=== PATIENT | male | born 1945 | race Caucasian/White ===

== ENCOUNTER 2017-02-18 11:14 | Observation (INO) | payer OTHER ==
[2017-02-15 20:19] LABS: BD FL LYMPH (NOT ORD) 1 %; BF BASO (NOT OF) 0 %; BF LARGE MONONUCLEAR 10 %; BF TOTAL CELL CT (NOT ORD 36910 /MM3; BODY FLUID EOS (NOT ORD) 0 %; BODY FLUID SEG (NOT ORD) 89 %
[2017-02-15 20:20] LABS: BD FL SOURCE (NOT ORD) RT KNEE; BODY FLUID RBC (NOT ORD) 30000 /MM3
--- NOTE | ~2017-02-18 | DS ---
Discharge Summary [facility] [address] [place]. [address] NAME: BERNARDA SHIN : 49 STATUS : DIS Nixon PAT#: [id number] AGE: 71 ADM/REG DATE : 02/18/17 MR#: [id number] REPORT SERV DATE: 02/25/17 DICTATED BY: DEANGELO MORA DATE: 02/25/17 REPORT STATUS : Draft TRANSCRIBED BY: ZECHARIAH DATE: 02/25/17 Data Collection from hospitalization DISCHARGE DIAGNOSES: 1. Right bimalleolar ankle fracture. 2. Hypertension. 3. Diabetes. 4. Osteoarthritis. 5. History of myocardial infarction. 6. Peripheral neuropathy. CONSULTATIONS: None. PROCEDURES PERFORMED: Right distal fibula and lateral malleolus ankle fracture open reduction and internal fixation, right avulsion fracture from the medial malleolus excision with primary deltoid repair on 02/18/2017. MEDICATIONS: Aspirin 81 mg daily; Lipitor 40 mg at bedtime; Coreg 3.125 mg twice a day; Zyrtec 10 mg daily; Plavix 75 mg daily; Taztia XT 180 mg daily; Lasix 40 mg every morning; Neurontin 300 mg three times a day; Glucotrol 10 mg every morning and 5 mg every evening; Matthews 7.5/325 one tablet twice a day as needed; Novolin N 25 units subcutaneously twice a day; Novolin R 5 units subcutaneously twice a day; Cozaar 12.5 mg every morning; Mag-Ox 400 mg every morning; Zaroxolyn 2.5 mg daily as needed; Promega 1000 mg every morning; Percocet 5/325 one to two tablets every four hours as needed; Protonix 40 mg every morning; K-Dur 40 mEq three times a day; Phenergan 25 mg every six hours as needed; Zoloft 150 mg every evening; Refresh solution as instructed; propafenone 225 mg three times a day; Coumadin 7.5 mg on Tuesday, Tuesday, Tuesday, and Tuesday and 3.75 mg on Tuesday, , and Tuesday. CONDITION AT DISCHARGE: Stable. DISPOSITION: The patient was discharged home to be followed by home health care on a regular diet with activities as instructed. He would follow up with me as scheduled. HOSPITAL COURSE: This is a 71-year-old man who has a right ankle fracture that occurred on 02/13/2017. He said that he tripped over an object and fell twisting his ankle. X-rays had shown right bimalleolar ankle fracture. Treatment options were discussed and it was elected to proceed with surgical intervention. He was admitted to the hospital at this time for further evaluation and treatment. Upon admission, he was taken to the operating room where he underwent the above-mentioned procedure. He tolerated this well, and there were no complications. On postop day #1, he was seen by Emigdio Loco. The patient has a history of coronary artery disease, hypertension, and atrial fibrillation. He tolerated his surgical procedure well. His pain was well controlled. Potassium supplementation was given. INR level was 1.5. We encouraged him to mobilize with Physical Therapy. He was evaluated by Physical Therapy. Over the next couple of days, discharge planning was performed. He continued to do well. On 02/21/2017, the patient was doing well. He was able to move and transfer via a wheelchair. He was unable to use a walker. He was to remain nonweightbearing on the right Discharge Summary [address] [address] NAME: BERNARDA SHNI : 49 STATUS : DIS Nixon PAT#: [id number] AGE: 71 ADM/REG DATE : 02/18/17 MR#: [id number] REPORT SERV DATE: 02/25/17 DICTATED BY: DEANGELO MORA DATE: 02/25/17 REPORT STATUS : Draft TRANSCRIBED BY: MODL DATE: 02/25/17 foot. Discharge instructions were given. Due to his improved and stable condition, he was discharged home to be followed by home health care with the above-stated instructions. Information collected by: Rosio Krishnamurthy I submit the above information as my discharge summary. BRANDON/ZECHARIAH Flor Mora D.P.M. / [id number] CC: Sara Ozuna M.D.
--- NOTE | ~2017-02-18 | OP ---
Record Of Operation [facility] [address] [place]. [address] NAME: BERNARDA SHIN : 49 STATUS : ADM Nixon PAT#: [id number] AGE: 71 ADM/REG DATE : 02/18/17 MR#: [id number] REPORT SERV DATE: 02/18/17 DICTATED BY: DEANGELO MONROE DATE: 02/18/17 REPORT STATUS : Draft TRANSCRIBED BY: MODHumberto DATE: 02/18/17 DATE OF PROCEDURE: 02/18/2017 PREOPERATIVE DIAGNOSIS: Right bimalleolar ankle fracture. POSTOPERATIVE DIAGNOSIS: Right bimalleolar ankle fracture. PROCEDURE: 1. Right distal fibula and lateral malleolus ankle fracture open reduction and internal fixation. 2. Right avulsion fracture from the medial malleolus excision with primary deltoid repair. ANESTHESIA: General and local anesthetic. ESTIMATED BLOOD LOSS: Minimal. COMPLICATIONS: None. INJECTABLES: Approximately 40 mL of a 1:1 mixer of Xylocaine and 0.5% Marcaine plain. MATERIALS: Include one-third tubular neutralization plate with 3.5, 4-0 screw fixation, 2-0 Vicryl, 3.0 suture anchor with 0 FiberWire, 4-0 nylon skin jacquelyn. PROCEDURE IN DETAIL: Under mild sedation, the patient was brought to the operating room and placed on the operating table in supine position. Following general anesthesia, local anesthesia was obtained about the patient's right foot and ankle. Right foot, ankle, and lower leg were scrubbed, prepped, and draped in usual aseptic manner. Attention was directed to the procedure. Procedure #1 is right distal fibular ankle fracture ORIF. Attention directed to the lateral aspect of the patient's right distal fibula and lateral malleolus. The incision was deepened to subcutaneous tissue with care being taken to identify and retract all vital neurovascular structures. All bleeders were cauterized and ligated as necessary. At this time, a linear periosteal incision was made overlying the distal fibula and lateral malleolus. The oblique fracture was visualized and interfrag hematoma was resected and irrigated. At this time, reduction ensued with fracture reduction clamps. Excellent reduction was noted. Fracture reduction clamp was held in place as an interfrag 3.5 cortical screw was placed from posterior to anterior across the fracture site utilizing standard AO principles and techniques. At this time, one-third tubular neutralization plate was contoured to the lateral malleolus and distal fibula. 3.5 screws were placed superior to the fracture and inferior to the fracture. 4-0 cancellous screw and one single locking 3.5 screw were placed to the most inferior site to reduce screw head prominence. Care was being taken to avoid intra-articular excursion under fluoroscopy guidance. Excellent reduction was noted. Attention now directed to the next procedure. The next procedure is right medial malleolar avulsion fracture excision with primary deltoid Record Of Operation [facility] [address] [facility] [place]. [address] NAME: BERNARDA SHIN : 49 STATUS : ADM Nixon PAT#: [id number] AGE: 71 ADM/REG DATE : 02/18/17 MR#: [id number] REPORT SERV DATE: 02/18/17 DICTATED BY: DEANGELO MONROE DATE: 02/18/17 REPORT STATUS : Draft TRANSCRIBED BY: ZECHARIAH DATE: 02/18/17 repair. Attention now was directed to the medial aspect of the patient's right ankle where a fracture blister was noted overlying the distal tibia. At this time, a curvilinear incision was made underlying the inferior aspect of the medial malleolus and inferior to the fracture blister. Blunt dissection was continued down to the level of the subcutaneous tissue. Large hematoma formation was noted at the level of the deltoid. Again, blunt dissection was continued through the retinacular tissues with deep blunt retraction exposing the deltoid ligament. Complete rupture of the superficial and deep deltoid portions was present. The avulsion fracture was easily identified and was resected. This was a small avulsion fracture. Copious irrigation ensued. Due to the severe rupture nature of the deltoid, superficial and deep components, a 3.0 suture anchor from [employer] was placed within the inferior aspect of the medial malleolus. 0 FiberWire was then utilized to reapproximate, coapt, and secure the deltoid, superficial and deep components of the ligament with the foot in a slight inverted in neutral position. Excellent reapproximation was noted, oversewing with 2-0 Vicryl ensued. The deep fascia was reapproximated and coapted using 2-0 Vicryl. Subcutaneous tissue was reapproximated and coapted using 2-0 Vicryl. Skin was reapproximated and coapted in interrupted suture technique with 4-0 nylon. The fracture blister was sterilely drained and Adaptic was placed and the blister was not de roofed. A well-padded sterile dressing was placed about the patient's right foot, ankle, and lower leg. The patient was placed in a neutral position. The patient tolerated the procedure and anesthesia well and was transferred to recovery room with vital signs stable and vascular status intact to all toes. Following a period of postoperative monitoring, the patient will be transferred to the floor for postop pain control and hopeful placement after evaluation with case management. The patient has significant comorbidities and hopeful placement will be an option. The patient will resume all blood thinners as well. Strict nonweightbearing at all times. BENNIE/ZECHARIAH Flor Monroe D.P.M. / [id number] CC: Flor Monroe D.P.M.
[~2017-02-18 11:14] MED LIST: ASAB PO; CARDIZEM LA180 MG PO; COREG3 PO; COUMADIN7.5 MG PO; COZ25 PO; GLUCOTRO10 PO; GLUCXL10 PO; INSNOVR SC; IPRA17AE INH; KDUR20 PO; L40 PO; LEVEMIR SC; LIPITOR40 PO; LUMIGAN2.5 ML OPH; MAGOX4 PO; MICRO-K10 MEQ PO; NEUR600 PO; NORCO1 TA2 PO; PLAVIX PO; PROMEGA PO; PROTONIXIV IV; PULRESP1 INH; RYTHMOL SR225 MG PO; SALMON OIL; VENTOLIN HFA INH; ZAROX2.5B PO; ZOL100 PO; ZYRTEC ALLGY10 MG PO
[2017-02-18 11:52] LABS: HEMATOCRIT 36.5 % (40.0-51.0); HEMOGLOBIN 12.8 g/dL (13.6-17.8)
[2017-02-18 12:02] LABS: CALCIUM, SERUM 8.9 MG/DL (8.5-10.4); CHLORIDE, SERUM 104 MMOL/L (96-112); CO2 (CARBON DIOXIDE) 32 MMOL/L (24-34); CREATININE 1.24 MG/DL (0.70-1.30); GFR AFRICAN AMERICAN 68 ML/MIN (>=60); GFR NON AFRICAN AMERICAN 59 ML/MIN (>=60); GLUCOSE, SERUM 111 MG/DL (60-99); INTERNATIONAL NORMAL RATI 1.5 UNITS (-); PROTIME (NOT ORD) 18.3 SEC (12.0-14.5); SODIUM, SERUM 142 MMOL/L (135-148)
[2017-02-18 12:10] LABS: BUN (BLOOD UREA NITROGEN) 35 MG/DL (6-23); POTASSIUM, SERUM 2.7 MMOL/L (3.5-5.3)
[2017-02-18] MEDS ORDERED: COREG3 PO (18:53)
[2017-02-18] MEDS ORDERED: LIPITOR40 PO (18:53)
[2017-02-18] MEDS ORDERED: ASAB PO (18:53)
[2017-02-18] MEDS ORDERED: PLAVIX PO (18:53)
[2017-02-18] MEDS ORDERED: L40 PO (18:53)
[2017-02-18] MEDS ORDERED: GLUCOTROL5 PO (18:54)
[2017-02-18] MEDS ORDERED: NEUR300 PO (18:54)
[2017-02-18] MEDS ORDERED: GLUCOTRO10 PO (18:54)
[2017-02-18] MEDS ORDERED: COUMADIN7.5 MG PO ×2 (18:55→19:04)
[2017-02-18] MEDS ORDERED: REFRES1 (18:56)
[2017-02-18] MEDS ORDERED: TAZTIA XT PO (18:56)
[2017-02-18] MEDS ORDERED: ZAROX2.5B PO (18:56)
[2017-02-18] MEDS ORDERED: ZYRTEC ALLGY10 MG PO (18:56)
[2017-02-18] MEDS ORDERED: COZ25 PO (18:57)
[2017-02-18] MEDS ORDERED: PROMEGA PO (18:57)
[2017-02-18] MEDS ORDERED: MAGOX4 PO (18:57)
[2017-02-18] MEDS ORDERED: NORCO1 TA2 PO (18:57)
[2017-02-18] MEDS ORDERED: KDUR20 PO (18:58)
[2017-02-18] MEDS ORDERED: PROPAFENONE PO (18:59)
[2017-02-18] MEDS ORDERED: INSNOVR SC (18:59)
[2017-02-18] MEDS ORDERED: [UNRECOGNIZED DRUG - OTHER] PO (18:59)
[2017-02-18] MEDS ORDERED: INSNOVN SC (18:59)
[2017-02-18] MEDS ORDERED: ZOL100 PO (19:00)
[2017-02-18] MEDS ORDERED: PROTONIX PO (19:05)
[2017-02-19 06:53] LABS: INTERNATIONAL NORMAL RATI 1.5 UNITS (-); PROTIME (NOT ORD) 17.5 SEC (12.0-14.5)
[2017-02-20 04:59] LABS: BUN (BLOOD UREA NITROGEN) 27 MG/DL (6-23); CHLORIDE, SERUM 103 MMOL/L (96-112); CO2 (CARBON DIOXIDE) 33 MMOL/L (24-34); CREATININE 1.31 MG/DL (0.70-1.30); GFR AFRICAN AMERICAN 64 ML/MIN (>=60); GFR NON AFRICAN AMERICAN 55 ML/MIN (>=60); GLUCOSE, SERUM 187 MG/DL (60-99); SODIUM, SERUM 142 MMOL/L (135-148)
[2017-02-20 05:01] LABS: INTERNATIONAL NORMAL RATI 1.4 UNITS (-); PROTIME (NOT ORD) 16.7 SEC (12.0-14.5)
[2017-02-20] MEDS ORDERED: PR25 PO (09:20)
[2017-02-20] MEDS ORDERED: PCET PO (09:20)
[2017-02-21 05:33] LABS: INTERNATIONAL NORMAL RATI 1.5 UNITS (-); PROTIME (NOT ORD) 17.8 SEC (12.0-14.5)
== END 2017-02-21 13:39 | disposition home or self-care (01) ==
LOC: SDC 11:14 → SDC/OF 15:46 → 4SO 17:58
PROVIDERS: Nurse Practitioner Gerontology; Orthopaedic Surgery; Podiatrist Foot & Ankle Surgery
PROC: 0QSG04Z Reposition Right Tibia with Internal Fixation Device, Open Approach (ICD-10-PCS; 2017-02-18)
PROC: 0QSJ04Z Reposition Right Fibula with Internal Fixation Device, Open Approach (ICD-10-PCS; principal; 2017-02-18 12:15)
DX: S82.841A Displaced bimalleolar fracture of right lower leg, initial encounter for closed fracture (principal); I11.0 Hypertensive heart disease with heart failure; I50.9 Heart failure, unspecified; I25.10 Atherosclerotic heart disease of native coronary artery without angina pectoris; I48.91 Unspecified atrial fibrillation; K21.9 Gastro-esophageal reflux disease without esophagitis; E11.9 Type 2 diabetes mellitus without complications; F32.9 Major depressive disorder, single episode, unspecified; M19.90 Unspecified osteoarthritis, unspecified site; H40.9 Unspecified glaucoma; E66.9 Obesity, unspecified; Z68.41 Body mass index [BMI] 40.0-44.9, adult; Z79.01 Long term (current) use of anticoagulants; Z95.5 Presence of coronary angioplasty implant and graft; Z79.82 Long term (current) use of aspirin; Z79.02 Long term (current) use of antithrombotics/antiplatelets; Z79.4 Long term (current) use of insulin; Z79.899 Other long term (current) drug therapy; Z87.891 Personal history of nicotine dependence; Z96.641 Presence of right artificial hip joint; Z96.1 Presence of intraocular lens; Z98.41 Cataract extraction status, right eye; Z98.42 Cataract extraction status, left eye; Z98.890 Other specified postprocedural states
CPT/HCPCS: 76000; 80048; 82962; 85014; 85018; 85610; 87070; 87075; 87102; 87205; 89051; 89060; 93005; 97162-GP; 97530-GP; A9270-GY; C1713; G0378; G8978-CK-GP; G8979-CJ-GP; J0690; J2250; J2405; J2710; J3010